=== PATIENT | female | born 1965 | race Caucasian/White ===

== ENCOUNTER → 2017-09-07 | Day surgery (SDC) | payer OTHER ==
[2017-08-30 10:09] VITALS: BMI 57.0
[~2017-09-07] VITALS: Ht 175.3 cm; Wt 175.0 kg
[~2017-09-07] MED LIST: AMOX500C3 PO; CHOL1000 PO; CYM/30 PO; DICL-201 PO; ERGO500011 PO; LEVO75TA PO; LIDOCAINE HCL 2% 2 ML VIAL (20MG/ML) ONE; LISI10TA PO; OXYC-57 PO; PROPOFOL IV EMULSION 10 MG/ML 20 ML VIAL IV ONE; SODIUM CHLORIDE 0.9% 500ML 500 ML IV ONE
[2017-09-07 08:55] VITALS: Ht 175.3 cm; Wt 175.0 kg
[2017-09-07 09:02] VITALS: TEMP 36.9
--- NOTE | 2017-09-07 09:08 | Endo History and Physical ---
History & Physical Date of Service: Sep 07, 2017. Chief Complaint: PRE-OP, OBESITY, HIGH BMI Referring Physician: DR. JACKSON History of Present Illness patient for screening colonoscopy and heartburn symptoms Past Surgical History Hx Cardiac Surgery: No Hx Internal Defibrillator: No Hx Pacemaker: No Hx Abdominal Surgery: Yes (YOUSIF, LAPAROSCOPY FOR SUTURE ABCESS S/P YOUSIF) Hx of Implantable Prosthesis: No Hx Post-Op Nausea and Vomiting: No Hx Cancer Surgery: No Hx Thoracic Surgery: No Hx Orthopedic: Yes (LT TKA, CERVICAL BULGING DISC REPAIR (FULL ROM)) Hx Urinary Tract Surgery: No Family History None Social History Smoking Status: Former Smoker Hx Substance Use: No Hx Alcohol Use: No Allergies Coded Allergies: No Known Allergies (Verified , 09/07/17) Current Medications Reported Home Medications Medications Dose Route/Sig Max Daily Dose Days Date Category Dose Instructions Percocet 5MG/325MG (Oxycodone/Acetaminophen) Tab 1-2 Tablets PO Q4H PRN 08/16/17 Reported PAIN Vitamin D 87752 Unit (Ergocalciferol) 50,000 Unit Cap 1 Tab PO WK 08/16/17 Reported Vitamin D3 (Cholecalciferol) 1,000 Unit Tab 1 Tab PO QAM 08/16/17 Reported Voltaren (Diclofenac Sodium) 75 Mg Tabcr 75 Mg PO DAILY-BID 08/16/17 Reported WITH FOOD Amoxil (Amoxicillin) 500 Mg Cap 4 Cap PO UD PRN 08/16/17 Reported Synthroid (Levothyroxine Sodium) 75 Mcg Tab 75 Mcg PO QAM 08/16/17 Reported Cymbalta (Duloxetine Hcl) 30 Mg Cap 30 Mg PO QAM 08/16/17 Reported Prinivil (Lisinopril) 10 Mg Tab 10 Mg PO QAM 08/16/17 Reported Vital Signs Weight (Kilograms): 175.00 Height (Feet): 5 Height (Inches): 9 Date Time Temp Pulse Resp B/P (MAP) Pulse Ox O2 Delivery O2 Flow Rate FiO2 09/07/17 09:02 36.9 110 22 164/85 (111) 93 Room Air Physical Exam General Appearance: no apparent distress Respiratory/Chest: Auscultation: breath sounds normal Cardiovascular: Heart Auscultation: RRR Abdomen: Inspection & Palpation: soft Liver: non-tender Assessment and Plan stable for EGD/[place]
--- NOTE | 2017-09-07 09:48 | GI REPORT ---
Procedure Date: 09/07/2017 9:06 AM Procedure: Upper GI endoscopy Indications: Heartburn Medicines: See the Anesthesia note for documentation of the administered medications Complications: No immediate complications. Estimated Blood Loss: Estimated blood loss was minimal. Procedure: Pre-Anesthesia Assessment: - Prior to the procedure, a History and Physical was performed, and patient medications, allergies and sensitivities were reviewed. The patient's tolerance of previous anesthesia was reviewed. - The risks and benefits of the procedure and the sedation options and risks were discussed with the patient. All questions were answered and informed consent was obtained. - Patient identification and proposed procedure were verified prior to the procedure by the physician and the nurse. The procedure was verified in the pre-procedure area. - Pre-procedure physical examination revealed no contraindications to sedation. - After reviewing the risks and benefits, the patient was deemed in satisfactory condition to undergo the procedure. After obtaining informed consent, the endoscope was passed under direct vision. Throughout the procedure, the patient's blood pressure, pulse, and oxygen saturations were monitored continuously. The scope was introduced through the mouth, and advanced to the third part of duodenum. The upper GI endoscopy was accomplished without difficulty. The patient tolerated the procedure well. Findings: The esophagus was normal. The entire examined stomach was normal. Biopsies were taken with a cold forceps for Helicobacter pylori testing. Verification of patient identification for the specimen was done by the physician and nurse using the patient's name and medical record number. Estimated blood loss was minimal. The examined duodenum was normal. The cardia and gastric fundus were normal on retroflexion. Impression: - Normal esophagus. - Normal stomach. Biopsied. - Normal examined duodenum. Recommendation: - Await pathology results. - Perform a colonoscopy today. Car Cintron M.D. Car Cintron MD 09/07/2017 9:48:27 AM This report has been signed electronically. Note Initiated On: 09/07/2017 9:06 AM I attest to the content of the Intraoperative Record and orders documented therein, exceptions below
--- NOTE | 2017-09-07 09:51 | Discharge Instructions ---
Endoscopy Patient Instructions Date / Procedure(s) Performed Sep 07, 2017. Colonoscopy, EGD Allergy Information Coded Allergies: No Known Allergies (Verified , 09/07/17) Discharge Date / Findings Sep 07, 2017. Normal EGD/Small colon polyp removed Provider Instructions Activity Restrictions - No exercising or heavy lifting for 24 hours. - Do not drink alcohol the day of the procedure. - Do not drive a car or operate machinery until the day after the procedure. - Do not make any important decisions or sign important papers in 24 hours after the procedure. Following Day: - Return to full activity which may include returning to work/school. Diet Start your diet with liquids and light foods (jello, soup, juice, toast). Then eat your usual diet if not nauseated. Treatment For Common After Affects For mild abdominal pain, bloating, or excessive gas: - Rest - Eat lightly - Lie on right side Follow-Up Information Follow-up with DR. JACKSON as scheduled Anesthesia Information What You Should Know You have had a procedure that required some medicine to reduce anxiety and discomfort. This treatment is called moderate sedation. After receiving the treatment, you may be sleepy, but you will be able to breathe on your own. The effects of the treatment may last for several hours. Follow these instructions along with Activity/Diet recommendations noted above: * Do NOT do anything where dizziness or clumsiness would be dangerous. * Rest quietly at home today, then you can be up and about tomorrow. * Have a responsible person stay with you the rest of today. * You may have had an I.V. today. If so, you may take the dressing off later today. Recommendations Call your doctor if: * Trouble breathing * Continuous vomiting for more than 24 hours * Temperature above 101 degrees * Severe abdominal pain or bloating * Pain not relieved by pain medicine ordered * There is increased drainage or redness from any incision * A large amount of rectal bleeding greater than 2-3 tablespoons. (If you had a polyp/s removed or have hemorrhoids, a small amount of blood - from the rectum is to be expected.) * You have any unanswered questions or concerns. IN THE EVENT OF A SERIOUS EMERGENCY, GO TO THE NEAREST EMERGENCY ROOM Your discharge instructions were prepared by provider Car Cintron. Patient Instructions Signature Page Heather Morataya Patient (or Guardian) Signature/Date: I have read and understand the instructions given to me by my caregivers. Caregiver/RN/Doctor Signature/Date: The above-named patient and/or guardian has received patient instructions on this date. + Original Patient Signature Page (only) stays with chart. Please make copy for patient.
--- NOTE | 2017-09-07 09:51 | GI REPORT ---
Procedure Date: 09/07/2017 9:08 AM Procedure: Colonoscopy Indications: Screening for colorectal malignant neoplasm Medicines: See the Anesthesia note for documentation of the administered medications Complications: No immediate complications. Estimated Blood Loss: Estimated blood loss was minimal. Procedure: Pre-Anesthesia Assessment: - See the other procedure note for documentation of the pre-procedure assessment. After I obtained informed consent, the scope was passed under direct vision. Throughout the procedure, the patient's blood pressure, pulse, and oxygen saturations were monitored continuously. The scope was introduced through the anus and advanced to the cecum, identified by appendiceal orifice and ileocecal valve. The colonoscopy was performed without difficulty. The patient tolerated the procedure well. The quality of the bowel preparation was good. Findings: The perianal and digital rectal examinations were normal. A 4 mm polyp was found at 30 cm proximal to the anus. The polyp was sessile. The polyp was removed with a cold snare. Resection and retrieval were complete. Verification of patient identification for the specimen was done by the physician and nurse using the patient's name and medical record number. Estimated blood loss was minimal. A few small-mouthed diverticula were found in the sigmoid colon. The exam was otherwise without abnormality on direct and retroflexion views. Impression: - One 4 mm polyp at 30 cm proximal to the anus, removed with a cold snare. Resected and retrieved. - Diverticulosis in the sigmoid colon. - The examination was otherwise normal on direct and retroflexion views. Recommendation: - Await pathology results. - Discharge patient to home. Car Cintron M.D. Car Cintron MD 09/07/2017 9:50:57 AM This report has been signed electronically. Note Initiated On: 09/07/2017 9:08 AM I attest to the content of the Intraoperative Record and orders documented therein, exceptions below
--- NOTE | 2017-09-07 10:04 | Anesthesiology Progress Note ---
Anesthesia Post Op Note Date & Time Sep 07, 2017 at 10:04 Vital Signs Pain Intensity: 0 Vital Signs Past 12 Hours Date Time Temp Pulse Resp B/P (MAP) Pulse Ox O2 Delivery O2 Flow Rate FiO2 09/07/17 10:00 87 18 135/92 (106) 98 Room Air 09/07/17 09:45 98 16 117/78 (91) 98 Room Air 09/07/17 09:02 36.9 110 22 164/85 (111) 93 Room Air Notes Mental Status: alert / awake / arousable, participated in evaluation Pt Amnestic to Procedure: Yes Nausea / Vomiting: adequately controlled Pain: adequately controlled Airway Patency, RR, SpO2: stable & adequate BP & HR: stable & adequate Hydration State: stable & adequate Anesthetic Complications: no major complications apparent
[2017-09-07 10:15] VITALS: BP 148/93; PULSE 84; O2SAT 98
== END | disposition home or self-care (01) ==
LOC: C.GI 08:26
PROVIDERS: ATTEND Internal Medicine Gastroenterology
DX: Z12.11 Encounter for screening for malignant neoplasm of colon (principal); R12 Heartburn; K63.5 Polyp of colon; K57.30 Diverticulosis of large intestine without perforation or abscess without bleeding; I10 Essential (primary) hypertension; F32.9 Major depressive disorder, single episode, unspecified; G47.33 Obstructive sleep apnea (adult) (pediatric); Z90.49 Acquired absence of other specified parts of digestive tract; Z96.652 Presence of left artificial knee joint; F17.200 Nicotine dependence, unspecified, uncomplicated; Z98.84 Bariatric surgery status; E66.9 Obesity, unspecified; Z68.43 Body mass index [BMI] 50.0-59.9, adult